=== PATIENT | female | born 1930 | race African-American/Black ===

== ENCOUNTER 2018-01-06 14:28 | Outpatient (CLI) | payer MEDICARE, OTHER ==
[~2018-01-06 14:28] MED LIST: AMIO200T57 PO; ASPI-1265 PO; COR3.125T PO; CYCL-394 PO; HYDR-3972 PO; NOR5T PO; OLME1TAB25 PO; PANT-47 PO; RIVA20TA PO
== END 2018-01-06 23:59 | disposition home or self-care (01) ==
LOC: CARD DIAG 14:28
PROVIDERS: ATTEND Internal Medicine Cardiovascular Disease
DX: I08.3 Combined rheumatic disorders of mitral, aortic and tricuspid valves (principal); R06.02 Shortness of breath; I10 Essential (primary) hypertension; R06.00 Dyspnea, unspecified
CPT/HCPCS: 93306

== ENCOUNTER 2022-04-11 05:58 | Day surgery (SDC) | payer MEDICARE, OTHER ==
[2022-04-10 11:10] LABS: BASOPHILS # (AUTO) 0.1 X10'3 (0-0.2); BASOPHILS % (AUTO) 1.1 % (0-1); EOSINOPHILS # (AUTO) 0.2 X10'3 (0-0.9); EOSINOPHILS % (AUTO) 2.9 % (0-6); HEMATOCRIT 35.5 % (35.0-45.0); LYMPHOCYTES # (AUTO) 2.3 X10'3 (1.1-4.8); LYMPHOCYTES % (AUTO) 31.1 % (21-51); MEAN CORPUSCULAR HEMOGLOBIN 33.3 PG (27.0-31.0); MEAN CORPUSCULAR HGB CONC 33.7 g/dL (33.0-36.5); MEAN CORPUSCULAR VOLUME 98.7 FL (78-98); MEAN PLATELET VOLUME 8.7 FL (7.4-10.4); MONOCYTES # (AUTO) 0.5 X10'3 (0-0.9); MONOCYTES % (AUTO) 7.1 % (2-12); NEUTROPHILS # (AUTO) 4.2 X10'3 (1.8-7.7); NEUTROPHILS % (AUTO) 57.8 % (42-75); PLATELET COUNT 238 X10'3 (140-440); RED CELL DISTRIBUTION WIDTH 13.3 % (11.5-14.5); WHITE BLOOD COUNT 7.3 X10'3 (4.5-11.0)
[2022-04-10 11:14] LABS: ANION GAP 7 (8-16); BLOOD UREA NITROGEN 18 MG/DL (7-18); BUN/CREATININE RATIO 18.8 (6.6-38.0); CALCIUM 9.1 MG/DL (8.5-10.1); CHLORIDE 103 MMOL/L (99-107); CREATININE 0.96 MG/DL (0.40-0.90); GLUCOSE 122 MG/DL (70-104); POTASSIUM 3.9 MMOL/L (3.5-5.1); SODIUM 140 MMOL/L (135-145); TOTAL CARBON DIOXIDE 30.3 MMOL/L (24-32); eGFR 66 ML/MIN
[2022-04-10 11:18] LABS: APTT 27 SECONDS (22-32)
[~2022-04-11] VITALS: Ht 160 cm; Wt 67.0 kg
[2022-04-11] VITALS (10 sets, daily range): BP systolic 105–163; BP diastolic 65–122
[~2022-04-11 05:58] MED LIST changes: -AMIO200T57 PO; +AMIO200T61 PO
[2022-04-11] MEDS ORDERED: normal saline 1000ml 1,000 ML IV PRN (06:15)
[2022-04-11] MEDS ORDERED: LIDOcaine 1% 30ml preserv. free vial SQ PRN (06:15)
[2022-04-11] MEDS ORDERED: ceFAZolin inj. 2,000 MG in normal saline soln 50 ML IV ONE (06:15)
[2022-04-11] MEDS ORDERED: RIVA15TA PO (06:32)
[2022-04-11] MEDS ORDERED: ATOR20TA PO (06:32)
[2022-04-11] MEDS ORDERED: SOTA80TA PO (06:32)
[2022-04-11] MEDS ORDERED: OMEG1CAP2 (06:32)
[2022-04-11] MEDS ORDERED: SOTA80TA73 PO (06:32)
[2022-04-11] MEDS ORDERED: NITR0.4T51 SL (06:34)
[2022-04-11] MEDS ORDERED: Vitamin E (06:38)
[2022-04-11] MEDS ORDERED: MULT-1085 PO (06:38)
[2022-04-11] MEDS ORDERED: LIDOcaine 1% 30ml preserv. free vial ONE (07:26)
[2022-04-11] MEDS ORDERED: fentaNYL/PF 50MCG/1 ML 2ML syringe ONE (07:26)
[2022-04-11] MEDS ORDERED: midazolam 1 mg/ML 2ml injection ONE (07:26)
[2022-04-11] MEDS ORDERED: LIDOcaine 1% W/epiNEPHrine 1:100,000 20ml vial ONE (07:35)
[2022-04-11] MEDS ORDERED: ceFAZolin 1000mg inj ONE ×2 (08:02→08:23)
[2022-04-11] MEDS ORDERED: HYDROcodone/acetaminophen 5mg/325mg tablet PO PRN (10:00)
[2022-04-11] MEDS ORDERED: HYDROcodone/acetaminophen 10/325mg tab PO PRN (10:00)
[2022-04-11] MEDS ORDERED: vancomycin/NS 1 GM ADD-VANTAGE 250 ML IV ONE (10:30)
[2022-04-11] MEDS ORDERED: acetaminophen 325mg tablet PO PRN (11:35)
== END 2022-04-11 14:05 | disposition home or self-care (01) ==
LOC: SSTAY O 05:58
PROVIDERS: ATTEND Internal Medicine Cardiovascular Disease
DX: Z45.010 Encounter for checking and testing of cardiac pacemaker pulse generator [battery] (principal); I49.5 Sick sinus syndrome; I48.91 Unspecified atrial fibrillation; I25.10 Atherosclerotic heart disease of native coronary artery without angina pectoris; I34.0 Nonrheumatic mitral (valve) insufficiency; Z98.890 Other specified postprocedural states; E78.5 Hyperlipidemia, unspecified; D64.9 Anemia, unspecified; G47.33 Obstructive sleep apnea (adult) (pediatric); I12.9 Hypertensive chronic kidney disease with stage 1 through stage 4 chronic kidney disease, or unspecified chronic kidney disease; N18.9 Chronic kidney disease, unspecified; E11.22 Type 2 diabetes mellitus with diabetic chronic kidney disease; Z90.710 Acquired absence of both cervix and uterus; G47.30 Sleep apnea, unspecified; Z79.899 Other long term (current) drug therapy; Z79.01 Long term (current) use of anticoagulants
CPT/HCPCS: 33228; 36415; 80048; 85025; 85610; 85730; 93005; 99152; 99153; C1785; J0690; J2250; J3010; J3370; J3490; J7030; A6258; A6449; C1786; C1894

== ENCOUNTER 2022-07-27 10:04 | Outpatient (CLI) | payer MEDICARE, OTHER ==
[~2022-07-27] VITALS: Ht 157.5 cm; Wt 61.2 kg
[~2022-07-27 10:04] MED LIST changes: -AMIO200T61 PO; -ASPI-1265 PO; +ATOR20TA PO; -COR3.125T PO; -CYCL-394 PO; -HYDR-3972 PO; +MULT-1085 PO; +NITR0.4T51 SL; +OMEG1CAP2; -PANT-47 PO; +RIVA15TA PO; -RIVA20TA PO; +SOTA80TA PO; +SOTA80TA73 PO; +Vitamin E
[2022-07-27] MEDS ORDERED: albuterol 2.5 MG/3 ML nebule NEB ONE (11:25)
[2022-07-27 11:42] LABS: TOTAL HEMOGLOBIN 14.7 G/dl (12.0-16.0)
== END 2022-07-27 23:59 | disposition home or self-care (01) ==
LOC: RT 10:04
PROVIDERS: ATTEND Internal Medicine Cardiovascular Disease
DX: R06.02 Shortness of breath (principal); G93.32 Myalgic encephalomyelitis/chronic fatigue syndrome
CPT/HCPCS: 85018; 94060; 94727; 94729; 94760